=== PATIENT | male | born 1950 | race Caucasian/White ===

== ENCOUNTER 2017-10-01 19:15 | Observation (INO) | payer MEDICARE, OTHER ==
[~2017-10-01] VITALS: Ht 188 cm; Wt 81.7 kg
[~2017-10-01 19:15] MED LIST: ASPIRIN81 MG PO; ATORVASTATIN CA10 MG PO; CRESTOR40 MG PO; Eliquis PO; GLIMEPIRIDE2 MG PO; GLIMEPIRIDE4 MG PO; LEVOTHYROXINE75 MCG PO; LOSARTAN POTASS25 MG PO; METFORMIN HCL500 MG PO; METOPROLOL TART50 MG PO; VITAMIN D350000 UNIT PO
[2017-10-01 20:17] LABS: BASOPHILS # (AUTO) 0.1 (0.0-0.1); BASOPHILS % 0.8 % (0.0-1.0); EOSINOPHILS # (AUTO) 0.2 (0.0-0.4); EOSINOPHILS % 3.2 % (0.0-6.0); HEMATOCRIT 44.1 % (38.2-49.6); HEMOGLOBIN 14.6 g/dL (14.0-18.0); LYMPHOCYTES # (AUTO) 1.1 (1.0-3.2); MEAN CORPUSCULAR HEMOGLOBIN 28.3 pg (28-32); MEAN CORPUSCULAR HGB CONC 33.1 g/dL (31-35); MEAN CORPUSCULAR VOLUME 85.5 fL (81-99); MONOCYTES # (AUTO) 0.6 (0.2-0.8); MONOCYTES % 9.2 % (4.4-11.3); NEUTROPHILS # (AUTO) 4.3 (2.1-6.9); NEUTROPHILS % 68.5 % (38.7-80.0); PLATELET COUNT 202 x10e3/uL (140-360); RED BLOOD COUNT 5.16 x10e6/uL (4.3-5.7); RED CELL DISTRIBUTION WIDTH 13.5 % (11.7-14.4)
--- NOTE | 2017-10-01 20:19 | Diagnostic Imaging Report ---
History:Trouble speaking Comparison studies:CT head 01/05/2015 Technique: Axial images were obtained from the skull base to the vertex. Coronal and sagittal images reconstructed from the axial data. Intravenous contrast: None Dose modulation, iterative reconstruction, and/or weight based adjustment of the mA/kV was utilized to reduce the radiation dose to as low as reasonably achievable. Scalp/skull: No abnormalities. Extra-axial spaces: No masses. No fluid collections. Brain sulci: Mildly prominent. Ventricles: Mild compensatory dilatation. No hydrocephalus. Parenchyma: Scattered hypodensities in the supratentorial white matter are small vessel ischemic changes. Hypodensity at the right lateral thalamus, right centrum semiovale and bermudez radiata medially secondary to chronic lacunar infarcts. No masses or hemorrhage. Sellar/suprasellar region: No abnormalities. Craniocervical junction: Patent foramen magnum. No Chiari one malformation. Incidental findings: Atherosclerotic calcifications in the carotid siphons . Impression: No acute intracranial abnormality. No changes compared to the previous examination Chronic findings: 1. Mild generalized volume loss. 2. Moderate supratentorial white matter small vessel ischemic changes. 3. Chronic lacunar infarct of the right corticospinal tract and right lateral thalamus Signed by: DR Deep Mayo M.D. on 10/01/2017 8:16 PM
[2017-10-01 20:33] LABS: INR 1.13; PROTHROMBIN TIME 13.6 seconds (11.9-14.5)
[2017-10-01 20:34] LABS: PARTIAL THROMBOPLASTIN TIME 28.8 seconds (23.8-35.5)
--- NOTE | 2017-10-01 20:34 | Diagnostic Imaging Report ---
EXAMINATION: CHEST SINGLE (NOT PORTABLE) INDICATION: \S\trouble speaking \S\Y COMPARISON: None FINDINGS: AP view TUBES and LINES: None. LUNGS: Lungs are well inflated. Lungs are clear. Mild bilateral central pulmonary vascular congestion. PLEURA: No pleural effusion or pneumothorax. HEART AND MEDIASTINUM: Prominent cardiac silhouette. BONES AND SOFT TISSUES: Intact median sternotomy wires. Soft tissues are unremarkable. UPPER ABDOMEN: No free air under the diaphragm. IMPRESSION: Mild bilateral central pulmonary vascular congestion. Signed by: Dr. Arlene Rodriguez M.D. on 10/01/2017 8:30 PM
[2017-10-01 20:35] LABS: ALANINE AMINOTRANSFERASE 12 IU/L (0-55); ALBUMIN 3.8 g/dL (3.5-5.0); ALBUMIN/GLOBULIN RATIO 1.1 (0.8-2.0); ALKALINE PHOSPHATASE 84 IU/L (40-150); ANION GAP 15.2 mmol/L (8-16); BLOOD UREA NITROGEN 29 mg/dL (7-26); BUN/CREATININE RATIO 25 (6-25); CALCIUM 9.8 mg/dL (8.4-10.2); CARBON DIOXIDE 26 mmol/L (22-29); CHLORIDE 104 mmol/L (98-107); CREATINE KINASE 43 IU/L (30-200); CREATININE, SERUM 1.18 mg/dL (0.72-1.25); EST GLOMERULAR FILTRATION RATE > 60 ML/MIN (60-); GLUCOSE 159 mg/dL (74-118); POTASSIUM 4.2 mmol/L (3.5-5.1); SODIUM 141 mmol/L (136-145)
[2017-10-01 21:42] LABS: CLARITY,URINE CLOUDY (CLEAR); COLOR,URINE YELLOW (YELLOW)
[2017-10-01 21:43] LABS: BILIRUBIN,URINE NEGATIVE (NEGATIVE); KETONES,URINE NEGATIVE (NEGATIVE); LEUKOCYTE ESTERASE ,URINE NEGATIVE (NEGATIVE); NITRITE,URINE NEGATIVE (NEGATIVE); PROTEIN,URINE DIPSTICK NEGATIVE (NEGATIVE); URINE UROBILINOGEN 0.2 mg/dL (0.2 - 1)
[2017-10-01 21:55] LABS: BACTERIA,URINE FEW /HPF; RBC,URINE 0-5 /HPF (0-5); WBC,URINE (MAN) 0-5 /HPF (0-5)
[2017-10-01 21:56] LABS: AMORPHOUS SEDIMENT,URINE MODERATE (FEW); EPITHELIAL CELLS,URINE RARE /LPF
[2017-10-01] MEDS ORDERED: DEXTROSE 50% SYRINGE 50 ML IV PRN (22:30)
[2017-10-01] MEDS ORDERED: SODIUM CHLORIDE FLUSH 10 ML SYR INJ PRN (22:30)
[2017-10-01] MEDS ORDERED: ONDANSETRON HCL INJ 2 MG/ML VIAL IV PRN (22:30)
[2017-10-01] MEDS ORDERED: PLAVIX75 MG PO (22:38)
[2017-10-01] MEDS ORDERED: SIMVASTATIN20 MG PO (22:38)
[2017-10-01] MEDS ORDERED: ZOLOFT50 MG PO (22:39)
[2017-10-02 04:00] VITALS: BP_SYST 148; BP_SYST 170; BP_DIAS 82; BP_DIAS 90
[2017-10-02 05:15] LABS: BASOPHILS % 0.7 % (0.0-1.0); EOSINOPHILS # (AUTO) 0.3 (0.0-0.4); EOSINOPHILS % 4.6 % (0.0-6.0); HEMATOCRIT 43.3 % (38.2-49.6); HEMOGLOBIN 14.1 g/dL (14.0-18.0); LYMPHOCYTES % 18.3 % (18.0-39.1); MEAN CORPUSCULAR HEMOGLOBIN 27.6 pg (28-32); MEAN CORPUSCULAR HGB CONC 32.6 g/dL (31-35); MEAN CORPUSCULAR VOLUME 84.7 fL (81-99); MONOCYTES # (AUTO) 0.6 (0.2-0.8); MONOCYTES % 11.4 % (4.4-11.3); NEUTROPHILS # (AUTO) 3.6 (2.1-6.9); NEUTROPHILS % 64.5 % (38.7-80.0); PLATELET COUNT 179 x10e3/uL (140-360); RED BLOOD COUNT 5.11 x10e6/uL (4.3-5.7); RED CELL DISTRIBUTION WIDTH 13.4 % (11.7-14.4)
[2017-10-02 05:48] LABS: ALANINE AMINOTRANSFERASE 12 IU/L (0-55); ALBUMIN 3.6 g/dL (3.5-5.0); ALBUMIN/GLOBULIN RATIO 1.1 (0.8-2.0); ALKALINE PHOSPHATASE 80 IU/L (40-150); ANION GAP 13.8 mmol/L (8-16); BLOOD UREA NITROGEN 25 mg/dL (7-26); BUN/CREATININE RATIO 24 (6-25); CALCIUM 9.4 mg/dL (8.4-10.2); CARBON DIOXIDE 27 mmol/L (22-29); CHLORIDE 106 mmol/L (98-107); CREATINE KINASE 60 IU/L (30-200); CREATININE, SERUM 1.05 mg/dL (0.72-1.25); EST GLOMERULAR FILTRATION RATE > 60 ML/MIN (60-); GLUCOSE 95 mg/dL (74-118); POTASSIUM 4.8 mmol/L (3.5-5.1); SODIUM 142 mmol/L (136-145)
[2017-10-02] MEDS: INSULIN REGULAR, HUMAN 100 UNIT/1 ML 3ML VIAL SQ SCH ×4 (07:30→21:00)
[2017-10-02 08:24] VITALS: BP 158/76
[2017-10-02 09:36] VITALS: BP 158/76
[2017-10-02] MEDS: ASPIRIN 81 MG ENTERIC COATED PO SCH (09:46)
--- NOTE | 2017-10-02 11:38 | History and Physical ---
CLINICAL HISTORY: This is a 67-year-old white man with previous history of CVA in 2015 admitted via the emergency room because of imbalance and aphasia lasting for approximately 2 hours. This patient presented in 2014 and was seen by Dr. Posey (who no longer comes to this hospital). He was treated conservatively and discharged on aspirin and Plavix. Since then, he has had no difficulties. In 1999, he had a myocardial infarction treated in [facility]. In 2001, he had coronary artery bypass surgery at the [facility]. He had a stress test a year ago showing no significant disease. According to him, he has had no chest discomfort and is physically active. He volunteers working for [employer]. He has no difficulty doing his job. PAST MEDICAL HISTORY: Remarkable for diabetes, hyperlipidemia, hypothyroidism. Also remarkable for hypertension. MEDICATIONS AT HOME 1. Aspirin 81 mg p.o. daily. 2. Clopidogrel 75 mg p.o. daily. 3. Levothyroxine 75 mcg p.o. daily. 4. Glucophage 1,000 mg b.i.d. 5. Metoprolol tartrate 50 mg daily. 6. Sertraline 100 mg daily. 7. Simvastatin 20 mg daily. ALLERGIES: CODEINE. PERSONAL AND SOCIAL HISTORY: Denies smoking or drinking. 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 FAMILY HISTORY: Father had CVA. Mother had diabetes. REVIEW OF SYSTEMS: Noncontributory. PHYSICAL EXAMINATION VITAL SIGNS: Stable. CARDIAC: Jugular veins are not distended. S1, S2 are regular. There is no appreciable murmur. LUNGS: Clear. ABDOMEN: Soft. Bowel sounds are present. EXTREMITIES: No cyanosis, clubbing or edema. NEUROLOGIC: No focal findings. LABORATORY: White count is 6200, hemoglobin 14.6, platelet count 202,000. INR is 1.15. Urinalysis shows cloudy urine, pH of 8, moderate amorphous sediment, negative for leukocyte esterase. Sodium 141, potassium 4.2, BUN is 29, creatinine 1.1, glucose 159. Cardiac enzymes are negative. Liver functions are negative. IMPRESSION 1. Transient ischemic attack with expressive aphasia and imbalance as well as blurring of vision lasting for 2 hours, now resolved. 2. History of cerebrovascular accident with also imbalance. Dysarthria at that time. Current CT scan showed old corticospinal tract lesions without any acute lesions. 3. Diabetes. 4. Hypertension. 5. Hyperlipidemia. 6. Hypothyroidism. 7. History of myocardial fraction in 1999 and coronary artery bypass surgery in 2001 with negative stress test last year. 8. Depression on Zoloft. RECOMMENDATIONS: Continue current medications. Neurology consultation. MRI and MRA. Consider early discharge if approved by neurology. Job#: [id number] cc:MD VANDANA HOBBS M.D.
[2017-10-02 12:22] VITALS: BP 135/80
[2017-10-02 13:55] LABS: CREATINE KINASE MB 1.9 ng/mL (0-5.0)
--- NOTE | 2017-10-02 14:17 | Diagnostic Imaging Report ---
EXAMINATION: MRI of the brain. MR angiogram of the [place] without contrast CLINICAL HISTORY: Slurred speech, confusion, transient ischemic attack. COMPARISON: Head CT on 10/01/2017 and brain MRI and 01/05/2015 TECHNIQUE: Brain MRI: Sagittal T2; axial DWI, T2, FLAIR, T1-IR, T2 gradient echo; coronal FLAIR. Brain MRA: 3D TOF images were obtained of the brain. MIP images of the arteries were isolated into anterior-posterior groups . The head source images, reformatted axial and coronal images, and premium representative projections of the MIP images through 180 degrees of rotation and tumbling of the brain were reviewed. FINDINGS: MRI OF THE BRAIN: Parenchyma: -No acute infarcts. -Chronic cortical infarct in the right superior postcentral cortex, corresponded to acute infarct on MRI dated 01/05/2015. -Mild progression of mild chronic microvascular ischemic changes. -Persistent multiple small chronic lacunar infarcts in the bilateral frontoparietal centrum semiovale, left putamen, bilateral subinsular regions, left cerebellum and right bilateral thalamus. Mass: None. Hemorrhage: None. Hydrocephalus: Normal ventricles. No hydrocephalus. Sella: No gross pituitary mass or empty sella. Foramen magnum: No Chiari malformation or mass. No evidence of intracranial hypotension. No inflammation of the joints at C1 or C2. Dural sinuses: Normal flow voids. No abnormal compression or distention. Extra-axial spaces: No abnormal enhancement . Sinuses/mastoids: No significant inflammatory disease. Orbits: No gross abnormality. No enlargement of the superior ophthalmic veins. Skull: No focal lesions. Grossly normal temporomandibular joints. MRA OF THE [place] : The distal internal carotid, distal vertebral, basilar, and cerebral arteries are patent. No significant stenosis, occlusion, aneurysm, or arteriovenous malformation is seen. Anatomic variation: Anterior Communicating Artery: Patent Posterior Communicating Arteries: Patent Vertebral arteries:The left is dominant. The right is ending as a PICA. Accessory right MCA. Fenestrated basilar artery. IMPRESSION: 1. No acute infarcts. 2. Chronic right postcentral cortical infarct (acute on 01/05/2015). 3. Persistent mild chronic microvascular ischemic changes and multiple chronic lacunar infarcts. 4. Normal MRA of the [place]. Signed by: Dr. Tennille Wadsworth M.D. on 10/02/2017 2:13 PM
--- NOTE | 2017-10-02 14:17 | Diagnostic Imaging Report ---
EXAMINATION: MRI of the brain. MR angiogram of the [place] without contrast CLINICAL HISTORY: Slurred speech, confusion, transient ischemic attack. COMPARISON: Head CT on 10/01/2017 and brain MRI and 01/05/2015 TECHNIQUE: Brain MRI: Sagittal T2; axial DWI, T2, FLAIR, T1-IR, T2 gradient echo; coronal FLAIR. Brain MRA: 3D TOF images were obtained of the brain. MIP images of the arteries were isolated into anterior-posterior groups . The head source images, reformatted axial and coronal images, and paper sales representative projections of the MIP images through 180 degrees of rotation and tumbling of the brain were reviewed. FINDINGS: MRI OF THE BRAIN: Parenchyma: -No acute infarcts. -Chronic cortical infarct in the right superior postcentral cortex, corresponded to acute infarct on MRI dated 01/05/2015. -Mild progression of mild chronic microvascular ischemic changes. -Persistent multiple small chronic lacunar infarcts in the bilateral frontoparietal centrum semiovale, left putamen, bilateral subinsular regions, left cerebellum and right bilateral thalamus. Mass: None. Hemorrhage: None. Hydrocephalus: Normal ventricles. No hydrocephalus. Sella: No gross pituitary mass or empty sella. Foramen magnum: No Chiari malformation or mass. No evidence of intracranial hypotension. No inflammation of the joints at C1 or C2. Dural sinuses: Normal flow voids. No abnormal compression or distention. Extra-axial spaces: No abnormal enhancement . Sinuses/mastoids: No significant inflammatory disease. Orbits: No gross abnormality. No enlargement of the superior ophthalmic veins. Skull: No focal lesions. Grossly normal temporomandibular joints. MRA OF THE [place] : The distal internal carotid, distal vertebral, basilar, and cerebral arteries are patent. No significant stenosis, occlusion, aneurysm, or arteriovenous malformation is seen. Anatomic variation: Anterior Communicating Artery: Patent Posterior Communicating Arteries: Patent Vertebral arteries:The left is dominant. The right is ending as a PICA. Accessory right MCA. Fenestrated basilar artery. IMPRESSION: 1. No acute infarcts. 2. Chronic right postcentral cortical infarct (acute on 01/05/2015). 3. Persistent mild chronic microvascular ischemic changes and multiple chronic lacunar infarcts. 4. Normal MRA of the [place]. Signed by: Dr. Tennille Wadsworth M.D. on 10/02/2017 2:13 PM
[2017-10-02 16:20] VITALS: BP 161/80
[2017-10-02] MEDS ORDERED: ENOXAPARIN SOD INJ 40 MG/0.4 ML SYR SC SCH (17:30)
[2017-10-02] MEDS: METFORMIN HCL 500 MG TAB PO SCH (18:08)
[2017-10-02 20:00] VITALS: BP 151/74
[2017-10-02] MEDS ORDERED: SIMVASTATIN 20 MG TAB PO SCH (21:00)
[2017-10-03] VITALS: BP 155/80
--- NOTE | 2017-10-03 01:01 | Consultation ---
DATE OF CONSULTATION: October 02, 2017 NEUROLOGY CONSULT NOTE HISTORY OF PRESENT ILLNESS: Mr. Villatoro is a 67-year-old right hand dominant man with past medical history significant for hypertension, hyperlipidemia, diabetes mellitus type 2, coronary artery disease with a prior myocardial infarction and a prior stroke, admitted to [facility] on October 01, 2017, with symptoms suspicious for transient ischemic attack. On the afternoon of admission, the patient began to feel unwell while at work. More specifically, the patient experienced lightheadedness and "feeling weird." Mr. Villatoro reports blurred vision affecting both eyes as well. Concerned his symptoms may be due to hypoglycemia, the patient left work, drove home, and checked his fingerstick serum glucose. The fingerstick serum glucose was 171. After arriving home, the patient went to bed and slept for a few hours. His awoke him at approximately 1815 for dinner. However, the patient immediately fell back to sleep for another 15 minutes. When his awoke him for dinner a second time, she noticed slurring of the patient's speech as well as expressive aphasia. According to the patient's , Mr. Villatoro's speech was not discernable. In addition to these symptoms, she noted impairment of balance and gait as well as slowness and lack of coordination with movements. Neither the patient nor his endorse a visual field cut, facial droop, hemiparesis, hemihypesthesia, dizziness, or confusion. Mr. Villatoro does not report experiencing a severe headache associated with the above symptoms. Concerned her may be experiencing another stroke, his brought him to the emergency center at [facility] via private vehicle for further evaluation of his symptoms. En route, the patient's symptoms spontaneously resolved. The duration of his symptoms is unknown. Upon arrival in the emergency center, the patient was afebrile with a blood pressure of 163/83 mmHg and a pulse of 56 beats per minute. His neurological examination as documented by the emergency center physician was significant for mild expressive aphasia and mild dysarthria. Mr. Villatoro was noted to be mildly ataxic while walking as well. A CT of the brain without contrast was performed while the patient was in the emergency center, but did not show evidence of recent large territorial ischemia, hemorrhage, mass, or mass effect. Mr. Villatoro was admitted to [facility] under observation status for further evaluation and treatment of his symptoms. As noted above, the patient experienced a prior stroke in December 2014. With this stroke, he had dysarthria, impairment of balance and gait, and incoordination. Following his stroke evaluation, the patient was placed on Eliquis for reasons which are unknown. The patient took this medicine for approximately 1 year. After 1 year, it was cost prohibitive to continue treatment with Eliquis. Therefore, Mr. Villatoro was prescribed Plavix by his line maintenance technician. REVIEW OF SYSTEMS: Fatigue, blurred vision, dysarthria, expressive aphasia, impairment of balance and gait, and incoordination. Otherwise, a 12-point review of systems is negative. PAST MEDICAL HISTORY: History of hypertension; hyperlipidemia; diabetes mellitus type 2; coronary artery disease with a prior myocardial infarction; thyroid disease; anxiety; a prior stroke; and hearing loss affecting both ears, left greater than right. PAST SURGICAL HISTORY: Cardiac stent placement, 2-vessel CABG, CABG, meniscus repair on a knee, and tonsillectomy. PAST HOSPITALIZATIONS: Surgeries/procedures as listed, stroke. FAMILY MEDICAL HISTORY: The patient's paternal and maternal grandparents are . Their medical histories are unknown. The patient's father is . He had a history of carotid stenosis and stroke. The patient's mother is . She had a history of tuberculosis as a child. She from renal failure. The patient had 2 siblings, 1 brother and 1 sister. The patient's brother is . He had a medical history significant for hypertension, hyperlipidemia, diabetes mellitus type 2, and alcohol abuse. Mr. Villatoro's sister is alive. She has hypertension, hyperlipidemia, and diabetes mellitus type 2. Mr. Villatoro has 3 daughters, all of whom are alive. The eldest daughter has hypertension, diabetes mellitus type 2, thyroid disease, and depression. The 2nd daughter has thyroid disease. The third daughter has thyroid disease as well. SOCIAL HISTORY: Patient is . Mr. Villatoro is retired. However, he works part-time for the [employer]. The patient endorses a remote history of tobacco use, but quit smoking cigarettes 40+ years ago. There is no reported current or prior alcohol or recreational drug use. HOME MEDICATIONS: Please see the list available on the electronic medical records. ALLERGIES: CODEINE. NO KNOWN FOOD ALLERGIES. NO KNOWN ALLERGIES TO LATEX. No known ALLERGIES TO IODINE OR OTHER CONTRAST MATERIALS. PHYSICAL EXAMINATION VITAL SIGNS: Height 74 inches, weight 180 pounds. BMI 23.1 kg per meter squared. Blood pressure 135/80 mmHg, pulse 64 beats per minute, respiratory rate 18 breaths per minute, and oxygen saturation 98% on room air. GENERAL: The patient is awake and alert, does not appear distressed. HEENT: Normocephalic, atraumatic. Pupils are equal, round, and reactive to light. Moist mucous membranes. NECK: Supple. No appreciable thyromegaly. No appreciable carotid bruits. CARDIOVASCULAR: S1 and S2, regular rate and rhythm. No murmurs, rubs, or gallops. RESPIRATORY: Clear to auscultation bilaterally. No wheezes, rhonchi, or rales. EXTREMITIES: The skin is warm and dry. No clubbing, cyanosis, or edema. The posterior tibial and dorsalis pedis pulses are 1+ and symmetric. SKIN: No rashes or lesions. NEUROLOGIC Memory/Attention: The patient is awake and alert, oriented to person, place, time, and situation. Cranial Nerves: Cranial nerve I: Not tested. Cranial nerve II, III, IV, and : Pupils are equal and round, react briskly to light (from 4 mm to 2 mm). Extraocular movements intact. No nystagmus. Cranial nerve V: Sensation to light touch and pinprick is intact in the bilateral V1 through V3 distributions. Strength of the temporalis and masseter muscles is within normal limits. Cranial nerve VII: The face is symmetric as are all facial movements. Strength is within normal limits. Cranial nerve VIII: Hearing is diminished to finger rub bilaterally, right greater than left. Cranial nerve IX, X: The soft palate elevates equally and symmetrically. Cranial nerve XI: Normal strength of the bilateral sternocleidomastoid and trapezius muscles. Cranial nerve XII: The tongue protrudes midline and moves symmetrically from side to side. Strength: Bulk is diminished throughout. Strength is 5/5 in the bilateral deltoids, biceps, triceps, wrist flexors and extensors, finger flexors and extensors, intrinsic hand muscles, hip flexors, knee flexors and extensors, ankle dorsiflexion and plantar flexion, and intrinsic foot muscles. Tone is normal. DTRs: Deep tendon reflexes are 2+ and symmetric at the triceps, biceps, brachioradialis, and patellae. Deep tendon reflexes are absent and symmetric at the Achilles. Plantar responses are flexor bilaterally. Sensation: Sensation is intact to light touch and pinprick in both arms and both legs. Cerebellar: Ujbeab-kbyx-uhzjru and heel-crook movements are intact without dysmetria or other impairment. Gait: Gait deferred. Speech: Spontaneous speech is normal without appreciable dysarthria or aphasia. Repetition is intact. Involuntary Movements: None. Pronator Drift: None. LABORATORY DATA: A complete metabolic panel is within normal limits. Cardiac enzymes are negative times 3. The CBC with differential and platelets is unremarkable. PT, INR, and PTT are within normal limits. A urinalysis is unremarkable. DIAGNOSTIC STUDIES 1. Electrocardiogram October 01, 2017: Sinus bradycardia at 57 beats per minute with 1st-degree AV block. 2. Chest x-ray, October 01, 2017: Mild bilateral central pulmonary vascular congestion. 3. CT of the brain without contrast, October 01, 2017: On my review, there is no evidence of recent large territorial ischemia, hemorrhage, mass, or mass effect. Chronic lacunar infarcts are seen in the right cortical spinal tract and right lateral thalamus. There is mild diffuse cerebral atrophy, appropriate for age. There are findings compatible with moderate to severe chronic small-vessel ischemic disease. 4. Bilateral carotid artery ultrasound with Doppler, October 01, 2017: Report pending. 5. Echocardiogram, October 02, 2017: Report pending. 6. MRI of the brain without contrast, October 02, 2017: On my review, there is no evidence of recent large territorial ischemia, hemorrhage, mass, or mass effect. Remote ischemic strokes are seen in the right postcentral gyrus, bilateral frontoparietal centrum semiovale, left putamen, bilateral subinsular regions, left cerebellum, and bilateral thalami. There is diffuse cerebral atrophy, appropriate for age. There are scattered nonspecific T2/flair hyperintense foci of the deep white matter compatible with moderate chronic small-vessel ischemic disease. 7. MRA of the brain, October 02, 2017: Normal MRA of the [place]. ASSESSMENT AND PLAN: Mr. Villatoro is a 67-year-old right hand dominant man with multiple vascular risk factors admitted to [facility] on October 01, 2017, with symptoms suspicious for transient ischemic attack in the left anterior middle cerebral artery distribution with cortical involvement. At present, his neurological examination is nonfocal. His laboratory data and other diagnostic studies have been reviewed and are documented above. RECOMMENDATIONS 1. A lipid panel and hemoglobin A1c will be ordered to complete the stroke evaluation. 2. Follow up the report of the echocardiogram. 3. Follow up the report of the bilateral carotid artery ultrasound with Doppler. 4. Currently, the patient is on dual antiplatelet therapy. However, due to the occurrence of a transient ischemic attack while on dual antiplatelet therapy suggests the patient may need anticoagulation for prophylaxis against future cardiovascular events. This will be discussed with the patient's line maintenance technician, Dr. Dhruv Ortiz, his office number is [phone]. 5. Allow permissive hypertension pending the results of the vessel imaging. 6. Follow up the results of the lipid panel. The patient's goal total cholesterol is less than 200 with an LDL of less than 70. Continue home medications in the interim. 7. Follow up the results of the hemoglobin A1c. The patient's goal hemoglobin A1c is less than 7.0. Continue home medications in the interim. 8. As there are no significant neurological deficits present, speech and physical therapy evaluations will be deferred. 9. GI prophylaxis with Pepcid 20 mg by mouth twice daily with meals. DVT prophylaxis with Lovenox 40 mg subcutaneously daily. 10. Defer treatment of the remaining medical comorbidities to the primary and other services following the patient. Thank you for this consultation. I will continue to follow this patient while he remains in the hospital. Time spent: 70 minutes. Job#: [id number] LYNETTE DEAN
[2017-10-03 04:00] VITALS: BP 155/86
[2017-10-03 05:34] LABS: CHOL/HDL RATIO 4.4 (3.9-4.7)
[2017-10-03] MEDS ORDERED: LEVOTHYROXINE SODIUM 75 MCG TAB PO SCH ×2 (06:00→09:00)
[2017-10-03] MEDS: INSULIN REGULAR, HUMAN 100 UNIT/1 ML 3ML VIAL SQ SCH ×2 (07:30→11:30)
[2017-10-03] MEDS ORDERED: FAMOTIDINE 20 MG TAB PO SCH (07:30)
[2017-10-03 07:34] VITALS: BP 149/74
[2017-10-03 08:30] VITALS: BP 149/74
[2017-10-03] MEDS: METFORMIN HCL 500 MG TAB PO SCH (08:30)
[2017-10-03] MEDS: ASPIRIN 81 MG ENTERIC COATED PO SCH (08:30)
[2017-10-03] MEDS ORDERED: METOPROLOL TARTRATE 50 MG TAB PO SCH (09:00)
[2017-10-03] MEDS ORDERED: ASPIRIN 81 MG CHEW TAB PO SCH (09:00)
[2017-10-03] MEDS ORDERED: CLOPIDOGREL BISULFATE 75 MG TAB PO SCH (09:00)
[2017-10-03] MEDS ORDERED: SERTRALINE HCL 50 MG TAB PO SCH (09:00)
[2017-10-03] MEDS ORDERED: XARELTO10 MG PO (10:29)
[2017-10-03] MEDS ORDERED: RIVAROXABAN 20 MG TABLET PO SCH (10:30)
--- NOTE | 2017-10-03 11:07 | Cardiology Report ---
DATE OF STUDY: October 01, 2017 PROCEDURE: Doppler scan of carotids. The left and right carotid arteries were interrogated using the duplex scanning method. Left carotid artery shows moderate intimal thickening and plaquing without high-grade stenosis or flow impairment. Left vertebral flow appears to be antegrade. Right carotid artery shows moderate intimal thickening and plaquing without high-grade stenosis or flow impairment. Right vertebral flow appears to be antegrade. CONCLUSIONS 1. No high-grade stenosis bilaterally. 2. Moderate intimal thickening and plaquing bilaterally. 3. Vertebral flow appears to be in normal direction bilaterally. Job#: [id number] cc:BENJIE ADKINS MD
--- NOTE | 2017-10-03 11:09 | Cardiology Report ---
DATE OF STUDY: ECHOCARDIOGRAM M-MODE: Dilated left atrium. Dilated left ventricle. Left ventricular hypertrophy. Severely diminished left ventricular contractility, especially at the apex. Mitral, aortic and tricuspid valves are grossly normal. The aortic root is enlarged at 4 cm. There is no pericardial effusion. SECTOR SCAN: Dilated left atrium and left ventricle. Dilated aortic root at 4 cm. Some echogenicity noted is noted in the left atrium, but this is not clear. Normal aortic, mitral and tricuspid valves. No pericardial effusion. CARDIAC DOPPLER STUDY WITH COLOR: One plus aortic regurgitation. Trace mitral regurgitation. No evidence of significant aortic stenosis. Mitral valve area is calculated low. There is trace tricuspid regurgitation. CONCLUSIONS 1. Dilated left ventricle with left ventricular hypertrophy with severely diminished left ventricular contractility. Estimated ejection fraction 30%. 2. Apical dyskinesis suggestive of ischemic heart disease. 3. Trace mitral regurgitation with dilated left atrium. There may be some echogenicity not consistently seen in the left atrium. 4. Dilated aortic root with mild aortic regurgitation. 5. Cannot exclude mitral stenosis. 6. Trace tricuspid regurgitation. RECOMMENDATIONS: If clinically indicated, consider transesophageal echocardiogram and anticoagulation. Job#: [id number] RI cc:MD JESUS HOBBS MD
[2017-10-03 11:41] VITALS: BP 119/56
--- NOTE | 2017-10-03 13:06 | Discharge Summary ---
CLINICAL HISTORY: This is a 67-year-old white man admitted via the emergency room because of aphasia which was transient, resolving within 2 hours, and because of imbalance. Please refer to my previous dictation concerning details of current illness, past medical history, personal and social history, family history, review of systems, physical examination, initial laboratory studies. HOSPITAL COURSE: The patient had a CT scan of the head which was unrevealing. MRI showed chronic right posterior central cortical infarction. MRA was negative. Echocardiogram showed enlarged left ventricle with diminished ejection fraction of 30%, apical dyskinesis, cannot exclude echogenicity in the left atrium. Dopp scan of the carotid was negative. Neurology was consulted with Dr. Johns, who recommended to consider anticoagulants. After reviewing this patient's echocardiogram, we concurred and recommend that he take anticoagulants. The patient has taken apparently Eliquis in the past but discontinued it due to cost. We suggest that he try Xarelto and to discuss it with his spring encaser, Dr. Dhruv Ortiz, concerning advisability for transesophageal echocardiogram and continue anticoagulation rather than continue him on aspirin and Plavix. At the time of discharge, the patient has completely recovered clinically, able to ambulate without any deficit whatsoever. DISCHARGE DIAGNOSES: 1. Transient ischemic attack. 2. Previous history of transient ischemic attack. 3. Ischemic cardiomyopathy, ejection fraction 30%, cannot exclude intracardiac thrombus. 4. Cannot exclude mitral stenosis. 5. Diabetes. 6. Hypertension. 7. Hyperlipidemia. 8. Hypothyroidism. 9. History of myocardial infarction and coronary artery bypass surgery year 1999 and 2001 respectively. 10. Depression. On Zoloft. MAUREEN REYNA MD Job#: [id number] EV cc:MD DHRUV HOBBS MD
== END 2017-10-03 12:54 | disposition home or self-care (01) ==
LOC: ER 19:15 → ERHOLD 22:30 → IMCU 10-02 03:49
PROVIDERS: ADMIT Internal Medicine Cardiovascular Disease; ATTEND Internal Medicine Cardiovascular Disease
DX: G45.9 Transient cerebral ischemic attack, unspecified (principal); I10 Essential (primary) hypertension; E11.9 Type 2 diabetes mellitus without complications; I25.2 Old myocardial infarction; I25.10 Atherosclerotic heart disease of native coronary artery without angina pectoris; Z95.1 Presence of aortocoronary bypass graft; Z86.73 Personal history of transient ischemic attack (TIA), and cerebral infarction without residual deficits; E78.5 Hyperlipidemia, unspecified; E03.9 Hypothyroidism, unspecified; R47.01 Aphasia; H53.8 Other visual disturbances; R26.89 Other abnormalities of gait and mobility; I25.5 Ischemic cardiomyopathy; F32.9 Major depressive disorder, single episode, unspecified
CPT/HCPCS: 36415 ×3; 70450; 70544; 70551; 71045; 80053 ×2; 80061; 81001; 82550 ×2; 82553 ×2; 82948 ×2; 83036; 84484 ×2; 85025 ×2; 85610; 85730; 93005; 93306; 93880; 97139; 99284; G0378 ×3; J1650

== ENCOUNTER 2017-12-23 17:19 | Observation (INO) | payer MEDICARE, OTHER ==
[~2017-12-23] VITALS: Ht 188 cm; Wt 83.0 kg
[~2017-12-23 17:19] MED LIST changes: +PLAVIX75 MG PO; +SIMVASTATIN20 MG PO; +XARELTO10 MG PO; +ZOLOFT50 MG PO
--- NOTE | 2017-12-23 18:20 | Diagnostic Imaging Report ---
EXAMINATION: CHEST SINGLE (PORTABLE) COMPARISON: Chest x-ray 10/01/2017 INDICATION: Slurred speech, TIA, dizziness DISCUSSION: Frontal view of the chest obtained at 1758 hours. HEART AND MEDIASTINUM: The cardiomediastinal silhouette is unremarkable. LINES: None. LUNGS: The lungs are diffusely hyperinflated and stable. No mass or infiltrate. Vascular markings are normal PLEURA: No pleural effusion or pneumothorax. BONES AND SOFT TISSUES: Median sternotomy wires are stable and intact. The soft tissues are normal. IMPRESSION: Stable pulmonary hyperinflation. No acute cardiopulmonary process. Signed by: Dr. Katharina Crowell MD on 12/23/2017 6:17 PM
--- NOTE | 2017-12-23 18:33 | Diagnostic Imaging Report ---
History:Slurred speech Comparison studies:CT head 01/05/2015, MRI brain 01/05/2015 and 10/03/1999 Technique: Axial images were obtained from the skull base to the vertex. Coronal and sagittal images reconstructed from the axial data. Intravenous contrast: None Dose modulation, iterative reconstruction, and/or weight based adjustment of the mA/kV was utilized to reduce the radiation dose to as low as reasonably achievable. Findings: Scalp/skull: No abnormalities. Extra-axial spaces: No masses. No fluid collections. Brain sulci: Mildly prominent. Ventricles: Mild compensatory dilatation. No hydrocephalus. Parenchyma: Scattered hypodensities in the supratentorial white matter are small vessel ischemic changes. Small cortical-based hypodensity at the right precentral gyrus and cardiac, related to remote insult No masses, hemorrhage, acute or chronic cortical vascular insults. Sellar/suprasellar region: No abnormalities. Craniocervical junction: Patent foramen magnum. No Chiari one malformation. Incidental findings: Atherosclerotic calcifications in the carotid siphons . Impression: No acute abnormalities. Chronic findings: 1. Mild generalized volume loss. 2. Mild supratentorial white matter small vessel ischemic changes. 3. Chronic infarct at the right precentral gyrus and bermudez radiata. Chronic lacunar infarct at the right lateral thalamus and right subinsular region Signed by: DR Deep Mayo M.D. on 12/23/2017 6:29 PM
[2017-12-23 19:23] LABS: BASOPHILS % 0.6 % (0.0-1.0); EOSINOPHILS # (AUTO) 0.2 (0.0-0.4); EOSINOPHILS % 3.1 % (0.0-6.0); HEMATOCRIT 46.3 % (38.2-49.6); HEMOGLOBIN 15.4 g/dL (14.0-18.0); LYMPHOCYTES # (AUTO) 1.1 (1.0-3.2); LYMPHOCYTES % 16.3 % (18.0-39.1); MEAN CORPUSCULAR HEMOGLOBIN 28.3 pg (28-32); MEAN CORPUSCULAR HGB CONC 33.3 g/dL (31-35); MONOCYTES # (AUTO) 0.5 (0.2-0.8); MONOCYTES % 8.2 % (4.4-11.3); NEUTROPHILS # (AUTO) 4.7 (2.1-6.9); NEUTROPHILS % 71.2 % (38.7-80.0); PLATELET COUNT 185 x10e3/uL (140-360); RED BLOOD COUNT 5.45 x10e6/uL (4.3-5.7); RED CELL DISTRIBUTION WIDTH 13.4 % (11.7-14.4)
[2017-12-23 19:25] LABS: CLARITY,URINE CLEAR (CLEAR); COLOR,URINE YELLOW (YELLOW)
[2017-12-23 19:26] LABS: BILIRUBIN,URINE NEGATIVE (NEGATIVE); KETONES,URINE NEGATIVE (NEGATIVE); LEUKOCYTE ESTERASE ,URINE NEGATIVE (NEGATIVE); NITRITE,URINE NEGATIVE (NEGATIVE); PROTEIN,URINE DIPSTICK NEGATIVE (NEGATIVE); URINE UROBILINOGEN 0.2 mg/dL (0.2 - 1)
[2017-12-23 19:32] LABS: INR 0.95; PROTHROMBIN TIME 13.5 seconds (11.9-14.5)
[2017-12-23] MEDS ORDERED: AMOXICILLIN250 MG PO (19:32)
[2017-12-23 19:33] LABS: PARTIAL THROMBOPLASTIN TIME 31.2 seconds (23.8-35.5)
[2017-12-23 19:42] LABS: ALBUMIN/GLOBULIN RATIO 1.1 (0.8-2.0); ANION GAP 16.3 mmol/L (8-16); CALCIUM 9.1 mg/dL (8.4-10.2); CREATININE, SERUM 1.3 mg/dL (0.72-1.25); MAGNESIUM 2.6 MG/DL (1.3-2.1); POTASSIUM 4.3 mmol/L (3.5-5.1)
[2017-12-23 19:47] LABS: EPITHELIAL CELLS,URINE RARE /LPF; RBC,URINE 0-5 /HPF (0-5); WBC,URINE (MAN) 0-5 /HPF (0-5)
[2017-12-23 20:02] LABS: CREATINE KINASE MB 1.9 ng/mL (0-5.0); THYROID STIMULATING HORMONE 4.543 uIU/mL (0.350-4.940)
[2017-12-23] MEDS ORDERED: DEXTROSE 50% SYRINGE 50 ML IV PRN ×2 (20:15)
[2017-12-23] MEDS ORDERED: ONDANSETRON HCL INJ 2 MG/ML VIAL IV PRN (20:15)
[2017-12-23] MEDS: FAMOTIDINE 20 MG/2 ML VIAL IV SCH (21:05)
[2017-12-23] MEDS: INSULIN LISPRO 100 UNIT/1 ML 3ML VIAL SQ SCH (21:07)
[2017-12-23 21:30] VITALS: BP 159/98
[2017-12-23 21:36] VITALS: BP 169/83
[2017-12-24] VITALS (7 sets, daily range): BP systolic 139–180; BP diastolic 76–91
[2017-12-24 05:04] LABS: BASOPHILS # (AUTO) 0.1 (0.0-0.1); BASOPHILS % 0.6 % (0.0-1.0); EOSINOPHILS # (AUTO) 0.3 (0.0-0.4); EOSINOPHILS % 3.1 % (0.0-6.0); HEMATOCRIT 45.3 % (38.2-49.6); HEMOGLOBIN 15.2 g/dL (14.0-18.0); LYMPHOCYTES # (AUTO) 1.1 (1.0-3.2); LYMPHOCYTES % 12.8 % (18.0-39.1); MEAN CORPUSCULAR HEMOGLOBIN 28.5 pg (28-32); MEAN CORPUSCULAR HGB CONC 33.6 g/dL (31-35); MEAN CORPUSCULAR VOLUME 84.8 fL (81-99); MONOCYTES # (AUTO) 0.7 (0.2-0.8); MONOCYTES % 7.6 % (4.4-11.3); NEUTROPHILS # (AUTO) 6.4 (2.1-6.9); NEUTROPHILS % 75.4 % (38.7-80.0); PLATELET COUNT 175 x10e3/uL (140-360); RED BLOOD COUNT 5.34 x10e6/uL (4.3-5.7); RED CELL DISTRIBUTION WIDTH 13.4 % (11.7-14.4)
[2017-12-24 05:22] LABS: CREATINE KINASE 49 IU/L (30-200)
[2017-12-24 05:53] LABS: ANION GAP 14.9 mmol/L (8-16); CALCIUM 9.6 mg/dL (8.4-10.2); CHOL/HDL RATIO 3.8 (3.9-4.7); CREATININE, SERUM 1.23 mg/dL (0.72-1.25); POTASSIUM 4.9 mmol/L (3.5-5.1)
[2017-12-24] MEDS: FAMOTIDINE 20 MG/2 ML VIAL IV SCH ×2 (08:14→21:57)
[2017-12-24] MEDS: INSULIN LISPRO 100 UNIT/1 ML 3ML VIAL SQ SCH ×4 (08:14→21:59)
[2017-12-24] MEDS ORDERED: METOPROLOL TARTRATE 50 MG TAB PO SCH (09:00)
[2017-12-24] MEDS ORDERED: NON-FORMULARY MEDICATION (Cholecalciferol (Vitamin D3) (Vitamin D3) 50,000 UNITS) PO SCH (09:30)
--- NOTE | 2017-12-24 11:02 | History and Physical ---
CLINICAL HISTORY: This is a 67-year-old white man known to me from previous evaluations because of previous CVA. He was admitted via the emergency room because of transient aphasia lasting for approximately 10 minutes. This patient was hospitalized in 2014 and again in September 2017 with similar complaints. He was evaluated previously by Dr. Posey and by Dr. Johns. He was discharged with Lan. In 2001, he had coronary artery bypass surgery at [facility]. In 2017, he had a stress test not showing significant coronary progression. He denies any exertional related chest pains. 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 PAST MEDICAL HISTORY: Remarkable for diabetes, hyperlipidemia, hypothyroidism, hypertension. MEDICATIONS AT HOME: Include: 1. Amoxicillin. 2. Aspirin. 3. Vitamin D3. 4. Glimepiride 4 mg per day. 5. Levothyroxine 75 mcg per day. 6. Metformin 500 mg b.i.d. 7. Metoprolol tartrate 50 mg daily. 8. Rivaroxaban 20 mg p.o. daily. 9. Zoloft 50 mg daily. 10. Simvastatin 20 mg daily. ALLERGIES: CODEINE. PERSONAL AND SOCIAL HISTORY: Denies smoking or drinking. 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 FAMILY HISTORY: Father had stroke. Mother had diabetes. REVIEW OF SYSTEMS: Noncontributory. PHYSICAL EXAMINATION VITAL SIGNS: Stable. CARDIOVASCULAR: Jugular veins are not distended. S1 and S2 are regular. There is no appreciable murmur. LUNGS: Clear. ABDOMEN: Soft. Bowel sounds are present. EXTREMITIES: No cyanosis, clubbing or edema. LABORATORY STUDIES: Review of echocardiogram done September 2017 showed ejection fraction 30%. [place] is dyskinetic suggestive of ischemic heart disease. Trace mitral regurgitation. Aortic root is dilated with mild aortic regurgitation. IMPRESSION 1. Recurrent aphasia with a history of transient ischemic attack, with CT scan showing right precentral gyrus, right bermudez radiata, right lateral thalamus, and right subinsular infarct. 2. Ischemic cardiomyopathy, ejection fraction 30%. 3. Coronary artery disease, status post coronary artery bypass surgery 2001. 4. Cannot exclude mitral stenosis. 5. Diabetes. 6. Hypertension. 7. Hyperlipidemia. 8. Hypothyroidism. 9. History of myocardial infarction in 2001 and 1999 respectively. 10. Depression on Zoloft. RECOMMENDATION: Repeat echocardiogram and Doppler scan of carotids. Neurologic consultation with Dr. Johns. Job#: [id number] cc:BENJIE ADKINS MD
[2017-12-24 14:15] LABS: CREATINE KINASE MB 1.2 ng/mL (0-5.0)
--- NOTE | 2017-12-24 14:58 | Diagnostic Imaging Report ---
Exam: Brain MRI without IV contrast History: Rule out CVA. Comparison studies: Multiple prior head CTs and brain MRIs date to 01/05/2015, most recent head CT of 12/23/2017 and brain MRI of 10/02/2017. Technique: Sagittal and axial T2 FS, axial DWI, axial T2*GRE, axial T1 FLAIR and axial coronal T2 FLAIR. Intravenous contrast: None Findings: Scalp: Normal in signal. No masses. Bone marrow: Normal in signal intensity. Brain sulci: Mildly prominent. Ventricles: Compensatory dilatation. No hydrocephalus. Extra axial spaces: No mass, no fluid collection. Parenchyma: Small focal increased T2 FLAIR hyperintensity with associated increased restricted diffusion (isointense to normal white matter on ADC map) in the left medial periatrial periventricular white matter periventricular white matter regional to the forceps major compatible with evolving subacute to chronic insult. No mass, hemorrhage or acute ischemia. Scattered and mildly confluent T2 FLAIR hyperintense foci in the supratentorial white matter are nonspecific but most compatible with chronic microvascular ischemic changes. Unchanged chronic cortical/subcortical insult at the junction of the right precentral gyrus and right superior parietal lobule and small chronic left superior parietal subcortical insult. There are multiple chronic lacunar infarcts which are also unchanged (deep left centrum semiovale, bilateral deep parietal white matter, bilateral subinsular, bilateral thalami and bilateral cerebellum (left greater than right)). Suprasellar region: No abnormalities. Craniocervical junction: Patent foramen magnum. No Chiari malformation. Vessels: Normal flow-voids in the arteries and sinuses. Incidental findings: Small left maxillary sinus retention cyst. IMPRESSION: 1. No acute ischemia or other acute intracranial abnormalities. 2. Small evolving subacute to chronic deep left parietal periventricular infarct, new from the 09/24/2017 MRI. 3. Mild generalized volume loss. 4. Mild generalized volume loss, moderate chronic microvascular ischemic changes, chronic right parietal cortical/subcortical insult and multiple chronic lacunar infarcts are unchanged. Signed by: Dr. Arturo Sánchez M.D. on 12/24/2017 2:55 PM
[2017-12-24] MEDS ORDERED: RIVAROXABAN 10 MG TABLET PO SCH (17:00)
[2017-12-24] MEDS ORDERED: RIVAROXABAN 20 MG TABLET PO SCH (17:00)
[2017-12-24] MEDS ORDERED: NON-FORMULARY MEDICATION (Glimepiride 4 MG) PO SCH (17:00)
[2017-12-24] MEDS: GLIMEPIRIDE 2 MG TAB PO SCH (17:30)
[2017-12-24] MEDS: METFORMIN HCL 500 MG TAB PO SCH (17:30)
[2017-12-24] MEDS: SIMVASTATIN 20 MG TAB PO SCH (21:57)
--- NOTE | 2017-12-24 23:36 | Consultation ---
DATE OF CONSULTATION: December 24, 2017 NEUROLOGY CONSULT HISTORY OF PRESENT ILLNESS: Mr. Villatoro is a 67-year-old right hand dominant man with past medical history significant for hypertension, hyperlipidemia, diabetes mellitus, coronary artery disease with prior myocardial infarction, and multiple prior transient ischemic attacks and stroke, admitted to [facility] on December 23, 2017, with symptoms suspicious for transient ischemic attack. At approximately 16:30 on the day of admission, the patient experienced the sudden onset of dysarthria, expressive aphasia, gait impairment, and dizziness, which is further described as lightheadedness. The patient's endorses possible confusion as well. Neither the patient nor his endorse a visual field cut or other disturbance, facial droop, hemiparesis, or hemihypoesthesia. As stated above, Mr. Villatoro has experienced multiple prior transient ischemic attacks and stroke. Therefore, his knew to bring him to the Emergency Center at [facility] for further evaluation of his symptoms. Upon arrival in the emergency center, the patient was afebrile with a blood pressure of 162/85 mmHg and a pulse of 55 beats per minute. The patient's neurological examination was documented as being nonfocal. The patient's reports Mr. Villatoro's symptoms did significantly improve/resolved while he was in the emergency center. She estimates this took place over a period of approximately 3 hours. While in the emergency center, a CT of the brain without contrast was performed and did not show evidence of recent large territorial ischemia or hemorrhage. Mr. Villatoro was admitted to [facility] under observation status for further evaluation and treatment of a probable transient ischemic attack. However, the symptoms described above recurred at noon on December 24, 2017. Approximately 2 to 3 hours following the recurrence of his symptoms, the patient underwent an MRI of the brain without contrast, which revealed subacute ischemia in the periventricular left parietal white matter. REVIEW OF SYSTEMS: Confusion, dysarthria, expressive aphasia, impairment of balance and gait, dizziness further described as lightheadedness. PAST MEDICAL HISTORY: Hypertension, hyperlipidemia, diabetes mellitus, coronary artery disease with prior myocardial infarction, thyroid disease, anxiety disorder, multiple prior transient ischemic attacks and strokes. PAST SURGICAL HISTORY: Cardiac stent placement times 2, 2-vessel CABG, meniscus repair on a knee, tonsillectomy. PAST HOSPITALIZATIONS: Surgeries/procedures as listed, stroke, transient ischemic attack. FAMILY MEDICAL HISTORY: The patient's paternal and maternal grandparents are . Their medical histories are unknown. The patient's father is . He had a medical history of carotid stenosis and stroke. The patient's mother is from end-stage renal disease. She had tuberculosis as a child. Mr. Villatoro had 2 siblings, a brother and sister. His brother is . He had hypertension, hyperlipidemia, diabetes mellitus type 2, and alcohol abuse. The patient's sister is alive. She has hypertension, hyperlipidemia, and diabetes mellitus type 2. Mr. Villatoro has 3 daughters, all of whom are alive. The eldest daughter has hypertension, diabetes mellitus type 2, thyroid disease, and depression. The second and third daughters have thyroid disease as well. SOCIAL HISTORY: Mr. Villatoro is . He is retired. The patient does report a prior history of tobacco use, but quit smoking cigarettes approximately 40 years ago. There is no reported current or prior alcohol or recreational drug use. HOME MEDICATIONS: 1. Amoxicillin 500 mg by mouth twice daily. 2. Aspirin 81 mg by mouth daily. 3. Vitamin D3 50,000 units by mouth weekly. 4. Glimepiride 4 mg by mouth twice daily. 5. Levothyroxine 75 mcg by mouth daily. 6. Metformin 1000 mg by mouth twice daily. 7. Metoprolol 50 mg by mouth daily. 8. Xarelto 20 mg by mouth daily. 9. Sertraline 100 mg by mouth daily. 10. Simvastatin 20 mg by mouth at bedtime daily. ALLERGIES: CODEINE. NO KNOWN FOOD ALLERGIES. NO KNOWN ALLERGIES TO LATEX. NO KNOWN ALLERGIES TO IODINE OR OTHER CONTRAST MATERIALS. PHYSICAL EXAMINATION: VITAL SIGNS: Height 74 inches, weight 180 pounds, BMI 23.1 kg per meter squared. Blood pressure 159/98 mmHg. Pulse 71 beats per minute. Respiratory rate 19 breaths per minute. Oxygen saturation 99% on room air. GENERAL: The patient is awake and alert. Does not appear distressed. HEENT: Normocephalic, atraumatic. Pupils are equal, round, and reactive to light. Moist mucous membranes. NECK: Supple. No appreciable thyromegaly. No appreciable carotid bruits. CARDIOVASCULAR: S1 and S2. Regular rate and rhythm. No murmurs, rubs, or gallops. RESPIRATORY: Clear to auscultation bilaterally. No wheezes, rhonchi, or rales. EXTREMITIES: The skin is warm and dry. No clubbing, cyanosis, or edema. The posterior tibial and dorsalis pedis pulses are 1+ and symmetric. SKIN: No rashes or lesions. NEUROLOGIC Memory/Attention: The patient is awake and alert. Oriented to person, place, time, and situation. Cranial Nerves: Cranial nerve I--not tested. Cranial nerve II, III, IV, and --pupils are equal and round, react briskly to light (from 4 mm to 2 mm). Extraocular movements intact. No nystagmus. Cranial nerve V--sensation to light touch and pinprick is intact in the bilateral V1 through V3 distributions. Strength of the temporalis and masseter muscles is within normal limits. Cranial nerve VII--the face is symmetric as are all facial movements. Strength is within normal limits. Cranial nerve VIII--hearing is diminished to finger rub bilaterally. Cranial nerve IX, X--the soft palate elevates equally and symmetrically. Cranial nerve XI--normal strength of the bilateral sternocleidomastoid and trapezius muscles. Cranial nerve XII--the tongue protrudes in midline and moves symmetrically from side to side. Strength: Bulk is normal. Strength is 5/5 in the bilateral deltoids, biceps, triceps, wrist flexors and extensors, finger flexors and extensors, intrinsic hand muscles, hip flexors, knee flexors and extensors, ankle dorsiflexion and plantar flexion, and intrinsic foot muscles except as follows: The left triceps muscles is 4/5. Tone is normal. DTRs: Deep tendon reflexes are 1+ and symmetric at the triceps, biceps, brachioradialis. Deep tendon reflexes are absent and symmetric at the patellas and Achilles. Plantar responses are flexor bilaterally. Sensation: Sensation is intact to light touch and pinprick in both arms and both legs. Positive left hemisensory neglect. Cerebellar: Ixlffa-xfop-bntsje and heel-crook movements are intact without dysmetria or other impairment. Gait: Deferred. Speech: Spontaneous speech is mildly dysarthric without appreciable aphasia. Repetition is intact. Naming is intact. Involuntary Movements: None. Pronator Drift: Left arm. LABORATORY DATA: The most recent basic metabolic panel is significant for an estimated GFR of 59, and a serum glucose 176. A liver function panel collected on December 23, 2017, was unremarkable. Cardiac enzymes are negative times 3. TSH 4.543. Total cholesterol 121, triglyceride 71, LDL cholesterol of 75, HDL cholesterol of 32. The CBC with differential and platelets reveals a white blood cell count of 8.52 with 75.4% neutrophils, 12.8% lymphocytes, 7.6% monocytes, 3.1% eosinophils, and 0.6% basophils. The hemoglobin and hematocrit are 15.2 and 45.3, respectively. The platelet count is 175,000. PT, PTT, and INR are within normal limits. A urinalysis is significant only for 1+ glucose. A urine culture collected on December 23, 2017, is in progress. DIAGNOSTIC STUDIES: Electrocardiogram on December 23, 2017: Sinus rhythm at 62 beats per minute with occasional premature ventricular complexes. CT of the brain without contrast, December 23, 2017: On my review, there is no evidence of recent large territorial ischemia, hemorrhage, mass, or mass effect. There are chronic infarcts of the right precentral gyrus, bermudez radiata, right lateral thalamus, and right subinsular region. There is mild diffuse cerebral atrophy with compensatory dilatation of the ventricles. There are findings compatible with moderate chronic small vessel ischemic disease. Chest x-ray, December 23, 2017: Stable pulmonary hyperinflation. No acute cardiopulmonary process. Echocardiogram December 24, 2017: Ejection fraction 40% to 45%. Left ventricular hypertrophy. Trace mitral regurgitation. Trace to mild tricuspid regurgitation and pulmonic insufficiency. Bilateral carotid artery ultrasound with Doppler, December 24, 2017: Results pending. MRI of the brain without contrast, December 24, 2017: On my review, there is a subacute ischemic stroke in the deep left parietal periventricular white matter. There are chronic ischemic strokes at the junction of the right precentral gyrus and right superior parietal lobule, left superior parietal subcortical region, left centrum semiovale, bilateral deep parietal white matter, bilateral subinsular regions, bilateral thalami, and bilateral cerebellum, left greater than right. There is diffuse cerebral atrophy with compensatory dilation of the ventricles. There are scattered nonspecific T2/flair hyperintense foci in the supratentorial and infratentorial deep white matter compatible with moderate chronic small vessel ischemic disease. ASSESSMENT AND PLAN: Mr. Villatoro is a 67-year-old right hand dominant man with multiple vascular risk factors, admitted to [facility] on December 23, 2017, with a subacute deep left parietal periventricular white matter ischemic stroke. The patient has undergone a thorough neurological examination with findings detailed above. Mr. Villatoro's laboratory data and other diagnostic studies have been reviewed and are documented above. RECOMMENDATIONS: 1. A hemoglobin A1c will be ordered to complete stroke evaluation. 2. Follow up any pending results. 3. Mr. Villatoro has had a new stroke while on Xarelto 20 mg by mouth daily. This indicates Xarelto is not adequate anticoagulation for the patient. Therefore, treatment with this medication will be discontinued. 4. Mr. Villatoro will begin treatment with Coumadin 5 mg by mouth daily with a Lovenox bridge. 5. The patient's goal blood pressure is less than 140/90 mmHg. Continue with current antihypertensive medications. Monitor vital signs per unit protocol and adjust medications accordingly. 6. The patient's total cholesterol and LDL are at goal. Continue treatment with current cholesterol lowering medications. 7. Follow up the results of the hemoglobin A1c. Continue home medications for diabetes mellitus. Tight glycemic control is recommended while the patient is in the hospital. 8. Speech and physical therapy consultations will be ordered. 9. GI prophylaxis with Pepcid 20 mg IV every 12 hours. DVT prophylaxis with Lovenox 80 mg subcutaneously q.12 h. 10. Defer treatment of the remaining medical comorbidities to the primary and other services following the patient. Thank you for this consultation. I will continue to follow the patient while he remains in the hospital. TIME SPENT: 70 minutes. Job#: [id number] BRANDAN DEAN
[2017-12-25] VITALS (7 sets, daily range): BP systolic 132–188; BP diastolic 60–80
[2017-12-25] MEDS: LEVOTHYROXINE SODIUM 75 MCG TAB PO SCH (06:29)
[2017-12-25] MEDS: INSULIN LISPRO 100 UNIT/1 ML 3ML VIAL SQ SCH ×4 (07:55→21:00)
[2017-12-25] MEDS: ASPIRIN 81 MG CHEW TAB PO SCH (08:21)
[2017-12-25] MEDS: METFORMIN HCL 500 MG TAB PO SCH ×2 (08:21→17:17)
[2017-12-25] MEDS: FAMOTIDINE 20 MG/2 ML VIAL IV SCH ×2 (08:21→21:00)
[2017-12-25] MEDS: METOPROLOL TARTRATE 50 MG TAB PO SCH (08:21)
[2017-12-25] MEDS: GLIMEPIRIDE 2 MG TAB PO SCH ×2 (08:21→17:16)
[2017-12-25] MEDS: SERTRALINE HCL 50 MG TAB PO SCH (08:21)
[2017-12-25] MEDS: ENOXAPARIN INJ 80 MG/0.8 ML SYR SC SCH ×2 (08:21→21:00)
[2017-12-25] MEDS ORDERED: LEVOTHYROXINE SODIUM 75 MCG TAB PO SCH (09:00)
[2017-12-25] MEDS ORDERED: WARFARIN SOD 5 MG TAB PO ONE (10:30)
--- NOTE | 2017-12-25 10:59 | Cardiology Report ---
DATE OF STUDY: December 24, 2017 DOPPLER SCAN OF CAROTIDS The left and right carotid arteries were interrogated using the duplex scanning method. Left carotid artery shows moderate plaquing particularly at the carotid bulb and bifurcation. The left vertebral flow appears to be antegrade. Right carotid artery shows moderate plaquing at the right carotid bulb without high-grade stenosis. Right vertebral flow appears to be antegrade. CONCLUSIONS 1. Moderate plaquing in both carotid bulbs and extending into the carotid bifurcation, particularly on the left side. 2. No high-grade stenosis bilaterally. 3. Vertebral flow appears to be in normal direction bilaterally. Job#: [id number] cc:Mary Carmen BARBER MD
--- NOTE | 2017-12-25 11:35 | Cardiology Report ---
DATE OF STUDY: December 24, 2017 ECHOCARDIOGRAM M-MODE: Suboptimal study. Dilated left atrium. Left ventricular hypertrophy. Diminished left ventricular contractility. Normal mitral and aortic valves. No pericardial effusion. SECTOR SCAN: Suboptimal study with very poor image quality. Dilated left atrium. Left ventricular hypertrophy. Diminished left ventricular contractility. Ejection fraction is approximately 35%. Mitral, aortic and tricuspid valves are grossly normal. There is no pericardial effusion. CARDIAC DOPPLER STUDY WITH COLOR: Trace mitral and tricuspid regurgitation. CONCLUSIONS 1. Suboptimal study with poor image quality. 2. Left ventricular hypertrophy with ejection fraction of approximately 35%. 3. Trace mitral regurgitation with dilated left atrium. 4. Trace tricuspid regurgitation. Job#: [id number] cc:Mary Carmen BARBER MD
[2017-12-25] MEDS: WARFARIN SOD 5 MG TAB PO SCH (17:17)
[2017-12-25] MEDS: SIMVASTATIN 20 MG TAB PO SCH (21:00)
[2017-12-26] VITALS (9 sets, daily range): BP systolic 127–157; BP diastolic 64–93
[2017-12-26 05:48] LABS: INR 1.13; PROTHROMBIN TIME 15.5 seconds (11.9-14.5)
[2017-12-26] MEDS: LEVOTHYROXINE SODIUM 75 MCG TAB PO SCH (06:11)
[2017-12-26] MEDS: SERTRALINE HCL 50 MG TAB PO SCH (08:57)
[2017-12-26] MEDS: METFORMIN HCL 500 MG TAB PO SCH ×2 (08:57→16:58)
[2017-12-26] MEDS: ENOXAPARIN INJ 80 MG/0.8 ML SYR SC SCH ×2 (08:57→20:42)
[2017-12-26] MEDS: FAMOTIDINE 20 MG/2 ML VIAL IV SCH ×2 (08:57→20:42)
[2017-12-26] MEDS: GLIMEPIRIDE 2 MG TAB PO SCH ×2 (08:57→16:57)
[2017-12-26] MEDS: ASPIRIN 81 MG CHEW TAB PO SCH (08:57)
[2017-12-26] MEDS: METOPROLOL TARTRATE 50 MG TAB PO SCH (08:57)
[2017-12-26] MEDS: INSULIN LISPRO 100 UNIT/1 ML 3ML VIAL SQ SCH ×4 (08:57→20:02)
[2017-12-26] MEDS ORDERED: WARFARIN SOD 5 MG TAB PO ONE (10:15)
[2017-12-26] MEDS: WARFARIN SOD 5 MG TAB PO SCH (16:57)
[2017-12-26] MEDS: SIMVASTATIN 20 MG TAB PO SCH (20:42)
[2017-12-27] VITALS (8 sets, daily range): BP systolic 124–153; BP diastolic 59–80
[2017-12-27] MEDS: LEVOTHYROXINE SODIUM 75 MCG TAB PO SCH (05:19)
[2017-12-27 06:05] LABS: INR 1.87
[2017-12-27] MEDS: INSULIN LISPRO 100 UNIT/1 ML 3ML VIAL SQ SCH ×4 (07:30→20:38)
[2017-12-27] MEDS: ASPIRIN 81 MG CHEW TAB PO SCH (08:46)
[2017-12-27] MEDS: GLIMEPIRIDE 2 MG TAB PO SCH ×2 (08:46→17:17)
[2017-12-27] MEDS: METFORMIN HCL 500 MG TAB PO SCH ×2 (08:46→17:17)
[2017-12-27] MEDS: FAMOTIDINE 20 MG/2 ML VIAL IV SCH ×2 (08:46→20:38)
[2017-12-27] MEDS: METOPROLOL TARTRATE 50 MG TAB PO SCH (08:54)
[2017-12-27] MEDS: ENOXAPARIN INJ 80 MG/0.8 ML SYR SC SCH ×2 (08:54→20:38)
[2017-12-27] MEDS: SERTRALINE HCL 50 MG TAB PO SCH (08:54)
[2017-12-27] MEDS ORDERED: ERGOCALCIFEROL 50,000 UNIT CAP PO SCH (09:00)
[2017-12-27] MEDS: WARFARIN SOD 5 MG TAB PO SCH (17:17)
[2017-12-27] MEDS: SIMVASTATIN 20 MG TAB PO SCH (20:38)
[2017-12-28] VITALS: BP 143/82
[2017-12-28 04:00] VITALS: BP 142/83
[2017-12-28] MEDS: LEVOTHYROXINE SODIUM 75 MCG TAB PO SCH (05:43)
[2017-12-28 05:57] LABS: INR 2.07; PROTHROMBIN TIME 24.9 seconds (11.9-14.5)
[2017-12-28 08:00] VITALS: BP 133/67
[2017-12-28] MEDS: INSULIN LISPRO 100 UNIT/1 ML 3ML VIAL SQ SCH ×2 (08:30→12:30)
[2017-12-28] MEDS: FAMOTIDINE 20 MG/2 ML VIAL IV SCH (09:15)
[2017-12-28] MEDS: ENOXAPARIN INJ 80 MG/0.8 ML SYR SC SCH (09:45)
[2017-12-28] MEDS: GLIMEPIRIDE 2 MG TAB PO SCH (09:45)
[2017-12-28] MEDS: METFORMIN HCL 500 MG TAB PO SCH (09:45)
[2017-12-28] MEDS: ASPIRIN 81 MG CHEW TAB PO SCH (09:45)
[2017-12-28] MEDS: SERTRALINE HCL 50 MG TAB PO SCH (09:45)
[2017-12-28] MEDS: METOPROLOL TARTRATE 50 MG TAB PO SCH (09:45)
[2017-12-28 10:23] VITALS: BP 133/67
[2017-12-28 12:00] VITALS: BP 140/83
[2017-12-28] MEDS ORDERED: COUMADIN5 MG PO (14:46)
--- NOTE | 2017-12-28 15:30 | Discharge Summary ---
CLINICAL HISTORY: This is a 67-year-old white man who presented with new CVA. Please refer to my previous dictation concerning details of current illness, past medical history, personal and social history, family history, review of systems, physical examination and initial laboratory studies. HOSPITAL COURSE: The patient underwent MRI scan and neurology consultation with Dr. Johns who determined that the stroke is new. The patient was, therefore, recommended to switch Xarelto to Coumadin. With the Coumadin adequately anticoagulated with INR 2.07, he was discharged to be followed on an outpatient basis. He was given instructions concerning Coumadin and to check the INR twice a week until stable and follow up with primary care physician and cardiology. DISCHARGE DIAGNOSES 1. Recurrent cerebrovascular accident with aphasia, with MRI showing new cerebrovascular accident. 2. Previous cerebrovascular accident in the right precentral gyrus, right bermudez radiata and the right lateral thalamus. 3. Ischemic cardiomyopathy, ejection fraction 30%. 4. Coronary artery disease, status post coronary artery bypass surgery in 2001. 5. Cannot exclude mitral stenosis. 6. Diabetes. 7. Hypertension. 8. Hyperlipidemia. 9. Hypothyroidism. 10. History of myocardial infarction in 2001 and 1999 respectively. 11. Depression on Zoloft. Discharge medications are the same except Xarelto was switched to Coumadin 5 mg per day. MAUREEN REYNA MD Job#: [id number] cc:BENJIE ADKINS MD
[2017-12-28] MEDS: WARFARIN SOD 5 MG TAB PO SCH (16:17)
== END 2017-12-28 16:21 | disposition home or self-care (01) ==
LOC: ER 17:19 → ERHOLD 20:10 → IMCU 21:34 → MED/SURG 12-26 19:44
PROVIDERS: ADMIT Internal Medicine Cardiovascular Disease; ATTEND Internal Medicine Cardiovascular Disease
DX: I63.312 Cerebral infarction due to thrombosis of left middle cerebral artery (principal); R47.01 Aphasia; I10 Essential (primary) hypertension; E11.9 Type 2 diabetes mellitus without complications; I25.10 Atherosclerotic heart disease of native coronary artery without angina pectoris; I25.2 Old myocardial infarction; Z95.1 Presence of aortocoronary bypass graft; Z79.01 Long term (current) use of anticoagulants; Z86.73 Personal history of transient ischemic attack (TIA), and cerebral infarction without residual deficits; Z87.891 Personal history of nicotine dependence; I25.5 Ischemic cardiomyopathy; E78.5 Hyperlipidemia, unspecified; E03.9 Hypothyroidism, unspecified; F32.9 Major depressive disorder, single episode, unspecified; R41.0 Disorientation, unspecified; Z83.3 Family history of diabetes mellitus; Z82.49 Family history of ischemic heart disease and other diseases of the circulatory system
CPT/HCPCS: 36415 ×6; 70450; 70551; 71045; 80048; 80053; 80061; 81001; 82550 ×2; 82553 ×2; 82948 ×6; 83036; 83735; 84443; 84484 ×2; 85025 ×2; 85610 ×4; 85730; 87086; 92523; 93005; 93306; 93880; 97116 ×4; 97139; 97161; 99284; G0378 ×6; G8978; G8979; J1650 ×4